=== PATIENT | female | born 2000 | race Caucasian/White ===

== ENCOUNTER 2022-04-03 14:01 | Emergency (ER) | payer MEDICAID, OTHER ==
[~2022-04-03] VITALS: Ht 167.6 cm; Wt 55.0 kg
[2022-04-03 14:12] VITALS: BP 125/78
== END 2022-04-03 17:52 | disposition home or self-care (01) ==
LOC: ER 14:16
DX: S06.9X1A Unspecified intracranial injury with loss of consciousness of 30 minutes or less, initial encounter (principal); M54.2 Cervicalgia; V32.6XXA Passenger in three-wheeled motor vehicle injured in collision with two- or three-wheeled motor vehicle in traffic accident, initial encounter; Y93.I9 Activity, other involving external motion; Y92.838 Other recreation area as the place of occurrence of the external cause
CPT/HCPCS: 70486; 81025; 99284